=== PATIENT | female | born 1970 | race Caucasian/White ===

== ENCOUNTER 2020-09-21 08:27 | Emergency (ER) | payer OTHER ==
[~2020-09-21] VITALS: Ht 162.6 cm; Wt 86.2 kg
[~2020-09-21 08:27] MED LIST: HUMALOG100 UNIT/2 SQ; HYDROCODON-ACE1 EAC7 PO; LANTUS100 UNIT/M SUBQ; PENICILLIN VK500 MG PO; TESSALON PERLE100 MG PO; ZITHROMAX250 MG PO
[2020-09-21 08:41] VITALS: BP 197/95
[2020-09-21] MEDS ORDERED: VENTOLIN HFA 1818 GM INH ×3 (11:08→11:12)
== END 2020-09-21 11:17 | disposition home or self-care (01) ==
LOC: M.ERS 08:27
DX: Z20.828 Contact with and (suspected) exposure to other viral communicable diseases (principal); E11.9 Type 2 diabetes mellitus without complications; Z88.5 Allergy status to narcotic agent; Z98.890 Other specified postprocedural states; Z90.710 Acquired absence of both cervix and uterus